=== PATIENT | female | born 1995 | race Caucasian/White ===

== ENCOUNTER 2018-11-12 05:37 | Day surgery (SDC) | payer BC ==
[2018-11-12] VITALS (11 sets, daily range): BP systolic 87–112; BP diastolic 48–75
[~2018-11-12] VITALS: Ht 188 cm; Wt 68.5 kg
[2018-11-12 06:31] LABS: ANION GAP 7 mmol/L (5-15); BLOOD UREA NITROGEN 18 mg/dL (7-18); CALCIUM 8.8 MG/DL (8.5-10.1); CARBON DIOXIDE 29 MMOL/L (21-32); CHLORIDE 104 MMOL/L (98-107); CREATININE 0.7 MG/DL (0.55-1.30); POTASSIUM 3.7 MMOL/L (3.5-5.1); SODIUM 140 MMOL/L (136-145)
[2018-11-12] MEDS ORDERED: GABAPENTIN800 MG ORAL (06:35)
[2018-11-12] MEDS ORDERED: ATIVAN0.5 MG ORAL (06:35)
[2018-11-12] MEDS ORDERED: METHADONE HCL5 MG ORAL (06:35)
[2018-11-12] MEDS ORDERED: PHENERGAN25 M1 ORAL (06:35)
[2018-11-12] MEDS ORDERED: prometrium PO (06:35)
[2018-11-12] MEDS ORDERED: ADDERAL20 MG ORAL (06:35)
[2018-11-12] MEDS ORDERED: ZYPREXA10 MG ORAL (06:35)
[2018-11-12] MEDS ORDERED: CELEBREX200 MG ORAL (06:35)
[2018-11-12 06:41] LABS: BASOPHILS % (AUTO) 1.3 % (0.0-2.0); EOSINOPHILS % (AUTO) 2.9 % (0.0-3.0); HEMATOCRIT 40.4 % (37.0-47.0); HEMOGLOBIN 14.5 G/DL (12.0-16.0); LYMPHOCYTES % (AUTO) 17.7 % (20.0-45.0); MEAN CORPUSCULAR VOLUME 91 FL (80-99); MONOCYTES % (AUTO) 8.4 % (1.0-10.0); NEUTROPHILS % (AUTO) 69.7 % (45.0-75.0); PLATELET COUNT 229 K/UL (150-450); RED BLOOD COUNT 4.43 M/UL (4.20-5.40); RED CELL DISTRIBUTION WIDTH 10.2 % (11.6-14.8); WHITE BLOOD COUNT 6.3 K/UL (4.8-10.8)
[2018-11-12] MEDS ORDERED: ceFAZolin sod 2 GM in NS 55 ML IVPB ONE (07:00)
[2018-11-12] MEDS ORDERED: Bacitracin 50000 Units Vial ONE (07:13)
[2018-11-12] MEDS ORDERED: Lidocaine 1% 10mg/ml/EPI 0.01mg/ml 50ml INJ ONE (07:13)
[2018-11-12] MEDS ORDERED: Bupivacaine 0.5% Inj 30 ml vial INJ ONE (07:13)
[2018-11-12] MEDS ORDERED: Bacitracin Oint 15gm Tube TOPIC ONE (07:13)
[2018-11-12] MEDS ORDERED: Dyna-Hex 2% Top Sol 2oz TOPIC ONE (07:14)
[2018-11-12] MEDS ORDERED: fentaNYL 100 mcg/2 mL IV ONE (07:18)
[2018-11-12] MEDS ORDERED: Midazolam 2mg/2ml Inj ONE (07:19)
[2018-11-12] MEDS ORDERED: Propofol 200mg/20ml IV ONE (07:21)
[2018-11-12] MEDS ORDERED: Lidocaine 1% MPF 10mg/ml 5ml ONE (07:21)
--- NOTE | 2018-11-12 07:23 | Pre-Procedure Note/Attestation ---
Pre-Procedure Note/Attestation Complete Prior to Procedure Planned Procedure: not applicable Procedure Narrative: chin reduction Indications for Procedure Pre-Operative Diagnosis: gender identity disorder Attestation I attest that I discussed the nature of the procedure; its benefits; risks and complications; and alternatives (and the risks and benefits of such alternatives ), prior to the procedure, with the patient (or the patient's legal quality audit representative). I attest that, if there was a reasonable possibility of needing a blood transfusion, the patient (or the patient's legal quality audit representative) was given the [facility] standardized written summary, pursuant to the Blake Fredy Blood Safety Act ([place] Health and Safety Code # 1645, as amended). I attest that I re-evaluated the patient just prior to the surgery and that there has been no change in the patient's H&P, except as documented below: Leon Neves MD Nov 12, 2018 07:23
[2018-11-12] MEDS ORDERED: Succinylcholine 20mg/ml 10ml vial ONE (07:28)
[2018-11-12] MEDS ORDERED: Zemuron 50mg/5ml Inj IV ONE (07:28)
[2018-11-12] MEDS ORDERED: TransDerm Scop 1.5mg/72HR Patch TDERMAL ONE (07:28)
--- NOTE | 2018-11-12 08:42 | Anethesia Preoperative Eval ---
Anesthesia Pre-op PMH/ROS General Date of Evaluation: Nov 12, 2018 Time of Evaluation: 07:22 Anesthesiologist: Aury ASA Score: ASA 3 Mallampati Score Class I : Soft palate, uvula, fauces, pillars visible Class II: Soft palate, uvula, fauces visible Class III: Soft palate, base of uvula visible Class IV: Only hard plate visible Mallampati Classification: Class II Surgeon: Edinson Diagnosis: Gendeer dysforia Surgical Procedure: Chin reduction Anesthesia History: none Family History: no anesthesia problems Allergies: Coded Allergies: VANCOMYCIN (Verified Allergy, Unknown, 11/09/18) Medications: see eMAR Patient NPO?: Yes Past Medical History Cardiovascular: Denies: HTN, CAD, MT, valve dz, arrhythmia, other Pulmonary: Reports: asthma - mild; Denies: COPD, GUERLINE, other Gastrointestinal/Genitourinary: Reports: GERD, other - h/o metastatic lung nodules s/p resection Neurologic/Psychiatric: Reports: depression/anxiety, other - gender dysphoria; Denies: dementia, CVA, TIA Endocrine: Denies: DM, hypothyroidism, steroids, other HEENT: Denies: cataract (L), cataract (R), glaucoma, TE-MOAK (L), TE-MOAK (R), other Hematology/Immune: Reports: other - recurrent osteosarcoma L femur; Denies: anemia, DVT, bleeding disorder Musculoskeletal/Integumentary: Reports: other - multiple resection of osteosarcoma L femur; Denies: OA, RA, DJD, DDD, edema PMH Narrative: as above PSxH Narrative: multiple for treatment of osteosarcoma, L limb saving and resection of bilateral pulmonary nodules, recent male to female sex changing Sx Anesthesia Pre-op Phys. Exam Physician Exam Last Vital Signs Date Time Temp Pulse Resp B/P (MAP) Pulse Ox O2 Delivery O2 Flow Rate FiO2 11/12/18 06:36 Room Air 11/12/18 06:16 97.6 81 18 100/61 98 Constitutional: NAD Neurologic: CN 2-12 intact Cardiovascular: RRR Respiratory: CTA Gastrointestinal: S/NT/ND Airway Exam Mallampati Score: Class II MO: limited Neck: flexible ROM: full Teeth: intact Dentures: no upper, no lower Anesthesia Pre-op A/P Labs Hematology Test 11/12/18 06:00 White Blood Count 6.3 K/UL (4.8-10.8) Red Blood Count 4.43 M/UL (4.20-5.40) Hemoglobin 14.5 G/DL (12.0-16.0) Hematocrit 40.4 % (37.0-47.0) Mean Corpuscular Volume 91 FL (80-99) Mean Corpuscular Hemoglobin 32.7 PG (27.0-31.0) H Mean Corpuscular Hemoglobin Concent 35.9 G/DL (32.0-36.0) Red Cell Distribution Width 10.2 % (11.6-14.8) L Platelet Count 229 K/UL (150-450) Mean Platelet Volume 6.4 FL (6.5-10.1) L Neutrophils (%) (Auto) 69.7 % (45.0-75.0) Lymphocytes (%) (Auto) 17.7 % (20.0-45.0) L Monocytes (%) (Auto) 8.4 % (1.0-10.0) Eosinophils (%) (Auto) 2.9 % (0.0-3.0) Basophils (%) (Auto) 1.3 % (0.0-2.0) Chemistry Test 11/12/18 06:00 Sodium Level 140 MMOL/L (136-145) Potassium Level 3.7 MMOL/L (3.5-5.1) Chloride Level 104 MMOL/L (98-107) Carbon Dioxide Level 29 MMOL/L (21-32) Anion Gap 7 mmol/L (5-15) Blood Urea Nitrogen 18 mg/dL (7-18) Creatinine 0.7 MG/DL (0.55-1.30) Estimat Glomerular Filtration Rate > 60 mL/min (>60) Glucose Level 109 MG/DL (74-106) H Calcium Level 8.8 MG/DL (8.5-10.1) Urine Test Test 11/12/18 05:50 Urine HCG, Qualitative Negative (NEGATIVE) Risk Assessment & Plan Assessment: ASA 3 Plan: GA with ETT PONV prevention Status Change Before Surgery: No Pre-Antibiotics Drug: Ancef 1gr. Given Within 1 Hr of Incision: Yes Time Given: 08:18 Felipe Jeffers MD Nov 12, 2018 08:42
[2018-11-12] MEDS ORDERED: LR 1000ml 1,000 ML IVLG SCH (08:43)
[2018-11-12] MEDS ORDERED: DiphenhydrAMINE 50mg/ml Inj IVP PRN (08:45)
[2018-11-12] MEDS ORDERED: Hydromorphone 0.5mg/0.5ml inj IVP PRN (08:45)
[2018-11-12] MEDS ORDERED: Acetaminophen (Non formulary) 100 ML IV ONE (08:45)
[2018-11-12] MEDS ORDERED: Meperidine 50mg/ml Inj(FOR RIGORS ONLY) IV PRN (08:45)
[2018-11-12] MEDS ORDERED: Metoclopramide 10mg/2ml Inj IVP PRN (08:45)
[2018-11-12] MEDS ORDERED: Ketorolac 30mg Inj IV PRN (08:45)
[2018-11-12] MEDS ORDERED: Ketorolac 30mg Inj ONE (08:50)
[2018-11-12] MEDS ORDERED: Glycopyrrolate 0.2mg/ml 1ml Vial ONE (08:50)
[2018-11-12] MEDS ORDERED: Morphine Sulfate 10mg/ml Inj ONE (08:54)
[2018-11-12] MEDS ORDERED: Sodium Chloride 10ml vial INJ ONE (08:54)
--- NOTE | 2018-11-12 09:43 | Operative Note - PDOC ---
Operative Note Operative Note Date of Operation/Procedure: Nov 12, 2018 Pre-op Diagnosis: gender identity disorder Procedure: chin reduction Post-op Diagnosis: same as pre-op Surgeon: Edinson Anesthesiologist: Aury Anesthesia: general Specimen: none Complications: none Condition: stable Estimated Blood Loss: minimal Drains: none Implant(s) used?: No Leon Neves MD Nov 12, 2018 09:43
[2018-11-12] MEDS ORDERED: HYDROmorphone 1mg/ml Carpuject SUBQ PRN (09:45)
[2018-11-12] MEDS ORDERED: HYDROcodone/Acetamin 5/325 tab ORAL PRN (09:45)
[2018-11-12] MEDS ORDERED: Tylenol #3 tab (300mg/30mg) ORAL PRN (09:45)
--- NOTE | 2018-11-12 09:45 | Discharge Instructions ---
Discharge Instructions Discharge Instructions Follow up with: Dr. Neves 11/20/18 Diet: soft Resume Normal Activity?: Yes Special Instructions soft diet for 7 days For Surgical Patients Dressing Care: other - remove dressing in 2 days and shower For Congestive Heart Failure Reminder Report to your physician any weight gain of 5 pounds or more in one week. Leon Neves MD Nov 12, 2018 09:45
--- NOTE | 2018-11-12 10:12 | Immediate Post-Op Evaluation ---
Immediate Post-Op Evalulation Immediate Post-Op Evalulation Procedure: Chin reduction Date of Evaluation: Nov 12, 2018 Time of Evaluation: 10:11 IV Fluids: 1200 Blood Products: none Estimated Blood Loss: <50 Urinary Output: none Blood Pressure Systolic: 108 Blood Pressure Diastolic: 56 Pulse Rate: 82 Respiratory Rate: 18 O2 Sat by Pulse Oximetry: 98 Temperature (Fahrenheit): 97.6 Pain Score (1-10): 1 Nausea: No Vomiting: No Complications none Patient Status: reacts, patent, extubated, none Hydration Status: adequate Felipe Jeffers MD Nov 12, 2018 10:12
--- NOTE | 2018-11-12 12:20 | 48 Hour Post Anesthesia Eval ---
Post Anesthesia Evaluation Procedure: Chin reduction Date of Evaluation: Nov 12, 2018 Time of Evaluation: 12:19 Blood Pressure Systolic: 108 0: 75 Pulse Rate: 82 Respiratory Rate: 20 Temperature (Fahrenheit): 97.6 O2 Sat by Pulse Oximetry: 98 Airway: patent Nausea: No Vomiting: No Pain Intensity: 2 Hydration Status: adequate Cardiopulmonary Status: stable Mental Status/LOC: patient returned to baseline Follow-up Care/Observations: n/a Post-Anesthesia Complications: none Follow-up care needed: ready to discharge Felipe Jeffers MD Nov 12, 2018 12:20
[2018-11-12] MEDS ORDERED: D5 1/2NS 1,000 ML IV SCH (15:00)
--- NOTE | 2018-11-12 16:30 | Operative Note - Dictated ---
DATE OF OPERATION: 11/12/2018 PREOPERATIVE DIAGNOSIS: Gender identity disorder. POSTOPERATIVE DIAGNOSIS: Gender identity disorder. PROCEDURE: Chin reduction. SURGEON: Leon Neves M.D. ANESTHESIA: General. ESTIMATED BLOOD LOSS: Minimal. COMPLICATIONS: None. CONDITION: To recovery room stable. INDICATION FOR PROCEDURE: This is a very pleasant 23-year-old trans female, who desires facial feminization as part of her transition, specifically chin reduction. I have discussed the risks, benefits, and alternatives to the procedure with her including, but not limited to, bleeding, infection, scarring, nerve injury, asymmetry, contour deformity, hematoma, seroma, and need for additional surgery including revisions. I discussed the orientation of the incision and the unpredictable nature of scarring. No guarantees were made regarding the outcome. All of her questions have been answered to the best of my ability. She verbalized understanding with everything that we discussed and wishes to proceed. DESCRIPTION OF PROCEDURE: The patient was identified in the preoperative holding area and the operative site was correctly identified. She was then brought to the operating room where she was placed in the supine position on the operating room table with her arms extended on arm boards. All bony prominences were adequately padded. Sequential compression devices were placed and intravenous antibiotics were administered. After induction of the anesthesia, the table was turned 90 degrees and the patient's face was prepped and draped in sterile fashion. I started the procedure by injecting the gingival buccal sulcus with 4 mL of 1% lidocaine with epinephrine. After sufficient time had elapsed in order to allow the epinephrine effect to take place, I then made a gingival buccal sulcus incision on the chin. Dissection proceeded down through the mentalis muscle, which was divided leaving a cuff of mucosa and mentalis muscle attached to the bone superiorly. Dissection proceeded down to the level of the bone. A [place] elevator was then used to elevate the remainder of the mentalis muscle off of the bone inferiorly. The mental nerve was identified bilaterally and protected at all times. I then used a [employer] drill with a rotating pineapple bur to proceed with the chin reduction. Chin reduction was performed by reducing the bone in the AP dimension to reduce the projection, in the vertical dimension to reduce the height of the chin, as well as rounding the sides to make the chin less square and more round. The skin was then redraped and it appeared that she had a much more feminine contour and appearance to her chin in that the appearance of the chin was not as square as it was preoperatively and had a nice round feminine contour to it. The wound was then irrigated with saline. The mentalis muscle was then reapproximated using interrupted 3-0 and 4-0 Vicryl suture followed by a running 4-0 chromic suture for the mucosa and locking configuration. The patient was then placed into a compressive head wrap. She tolerated the procedure well and was sent to the recovery room in stable condition. All instrument, sharp, and sponge counts were correct at the conclusion of the case. Leon Neves M.D. DR: FREDERICK JOB#: [id number] CC:
== END 2018-11-12 11:45 | disposition home or self-care (01) ==
LOC: SUR 05:37
DX: F64.9 Gender identity disorder, unspecified (principal); K21.9 Gastro-esophageal reflux disease without esophagitis; Z85.830 Personal history of malignant neoplasm of bone; Z88.8 Allergy status to other drugs, medicaments and biological substances
CPT/HCPCS: 21209; 36415; 80048; 81025; 85025; J0330; J0690; J1885; J2250; J2270; J2405; J2704; J3010; 94003; 94150